=== PATIENT | female | born 1950 | race Caucasian/White ===

== ENCOUNTER 2017-01-30 11:14 | Emergency (ER) | payer OTHER ==
[~2017-01-30] VITALS: Ht 157.5 cm; Wt 60.0 kg
[~2017-01-30 11:14] MED LIST: AMO500 PO; MECL25TA2 PO; ONDA4TAB8 PO
[2017-01-30 11:17] VITALS: Ht 157.5 cm; Wt 60.0 kg
[2017-01-30] MEDS ORDERED: ONDANSETRON (ODT) 4 MG TAB ODT STA (11:50)
[2017-01-30] MEDS ORDERED: MECLIZINE 12.5 MG TAB PO ONE (12:00)
[2017-01-30 12:24] LABS: URINE BLOOD (Dip) POC Trace-lysed (NEGATIVE)
--- NOTE | 2017-01-30 12:27 | RADRPT ---
PROCEDURE: CT Brain without. CLINICAL INDICATION: Headache and dizziness. TECHNIQUE: A CT of the brain was performed on multidetector high-resolution CT scanner utilizing a xial sections from the skull base through the vertex without contrast. The scan was reviewed in sof t tissue brain and high frequency resolution bone algorithm windows. Images were reviewed on a high -resolution PACS workstation. One or more the following does reduction techniques were utilized: Aut omated exposure control, adjustment of the mA/ or kV according to patient's size, or use of iterativ e reconstruction technique. The exam CTDI = 45.01 mGy and the DLP = 630.2 mGy-cm. COMPARISON: Brain CT 05/16/2016. FINDINGS: The ventricles and sulci are age-appropriate. There is no intracranial hemorrhage, mass effect or m idline shift. No abnormal intra-axial or extra-axial fluid collections are seen. The woody/white mat ter differentiation is preserved. Partially empty sella is again noted. There are minimally scattered foci of hypoattenuation in the white matter, which are nonspecific in etiology but likely reflect chronic small vessel ischemic changes. There are minimal intracranial v ascular calcifications consistent with atherosclerosis. The visualized paranasal sinuses are essenti ally clear. IMPRESSION: 1. No acute intracranial hemorrhage, transcortical infarction or mass effect. 2. Minimal intracranial atherosclerosis and chronic small vessel ischemic changes. 3. Partially empty sella. RPTAT: HH .Vince Sandoval MD, MD Date Time Electronically viewed and signed by .Vince Sandoval MD, MD on 01/30/2017 12:26 .N/
[2017-01-30] MEDS ORDERED: MECL-77 PO (13:22)
[2017-01-30] MEDS ORDERED: IBUP400T22 PO (13:22)
--- NOTE | 2017-01-30 13:26 | ERD ---
ER Documentation Chief Complaint Date/Time DATE: 01/30/17 TIME: 13:24 Chief Complaint left arm numbness x 6 mos, no other neuro, no cp HPI 66-year-old female presents with multiple complaints. Point of a six-month history of some dizziness, and her head feeling heavy. She also some numbness in her left arm. She has a chest pain, shortness breath, bowel or bladder incontinence, weakness. She denies any history of trauma or fevers. She denies visual changes. ROS All systems reviewed and are negative except as per history of present illness. Medications Home Meds Active Scripts Ibuprofen* (Motrin*) 400 Mg Tab, 400 MG PO Q6H Y for PAIN, #15 TAB Prov:SHARON CONNORS MD 01/30/17 Meclizine Hcl* (Meclizine Hcl*) 25 Mg Tablet, 25 MG PO Q8H Y for DIZZINESS, #15 TAB Prov:SHARON CONNORS MD 01/30/17 Ondansetron Hcl* (Zofran*) 4 Mg Tablet, 4 MG PO Q8H Y for NAUSEA AND/OR VOMITING , #30 TAB Prov:JASWINDER BAILON 05/20/16 Meclizine Hcl* (Antivert*) 25 Mg Tablet, 25 MG PO Q6H Y for DIZZINESS, #20 TAB Prov:JASWINDER BAILON 05/20/16 Amoxicillin* (Amoxicillin*) 500 Mg Cap, 500 MG PO TID for 7 Days, CAP Prov:JASWINDER BAILON 05/20/16 Allergies Allergies: Coded Allergies: No Known Allergy (Unverified , 06/06/15) PMhx/Soc Medical and Surgical Hx: pt denies Medical Hx, pt denies Surgical Hx Hx Alcohol Use: No Hx Substance Use: No Hx Tobacco Use: No Physical Exam Vitals Vital Signs Date Time Temp Pulse Resp B/P Pulse Ox O2 Delivery O2 Flow Rate FiO2 01/30/17 11:17 98.1 78 18 135/77 99 Physical Exam Const: [] Alert, [id number]. Head: Atraumatic Eyes: Normal Conjunctiva. Eyes are PERRLA and extraocular movements intact. No pallor of the lids to suggest anemia ENT: Normal External Ears, Nose and Mouth. Neck: Full range of motion..~ No meningismus. Resp: Clear to auscultation bilaterally Cardio: Regular rate and rhythm, no murmurs Abd: Soft, non tender, non distended. Normal bowel sounds Skin: No petechiae or rashes Back: No midline or flank tenderness Ext: No cyanosis, or edema Neur: Awake and alert. Cranial nerves II through XII grossly intact. Negative Romberg and normal gait. Psych: Normal Mood and Affect Results 24 hrs Laboratory Tests Test 01/30/17 12:17 01/30/17 12:27 Bedside Glucose 100mg/dL Bedside Urine pH (LAB) 6.5 Bedside Urine Protein (LAB) Negative Bedside Urine Glucose (UA) Negative Bedside Urine Ketones (LAB) Negative Bedside Urine Blood Trace-lysed Bedside Urine Nitrite (LAB) Negative Bedside Urine Leukocyte Esterase (L Negative Current Medications Medications (Trade) Dose Ordered Sig/Aracelis Route PRN Reason Start Time Stop Time Status Last Admin Dose Admin Meclizine HCl (Antivert) 25 mg ONCE ONCE PO 01/30/17 12:00 01/30/17 12:04 DC 01/30/17 12:15 Ondansetron HCl (Zofran Odt) 8 mg ONCE STAT ODT 01/30/17 11:50 01/30/17 11:52 DC 01/30/17 12:15 Procedures/MDM Given the uncertain cause of headache and dizziness somatic complaints of CT brain was performed which showed no acute findings. EKG: Rate/Rhythm: [Normal Sinus Rhythm] QRS, ST, T-waves: [No changes consistent w/ acute ischemia] Impression: [No evidence of ischemia or arrhythmia] impression-sinus tachycardia without acute additional findings. Accu-Chek was 100. Urine shows no glucose, who presented nitrites. There is trace hemoglobin. Patient was given Antivert 25 mg by mouth. Patient presents with multiple somatic complaints of uncertain etiology. She presented with a pulse of 78 and mild sinus tachycardia on the EKG without additional cardiac symptoms suggestive of possible stress response. She is paresthesias, sensation of heaviness in her head with mild dizziness which is not reproducible. There is no signs of anemia on physical exam. Patient was discharged home with primary care follow-up in instructions to return to ER for new or worsening symptoms. The patient was stable with no new complaints during the ER course. Clinically, there is no current evidence to suggest meningitis, sepsis, acute abdomen, pneumonia, acute coronary syndrome, pulmonary embolism, or any other emergent condition appearing to require further evaluation or hospitalization. The patient should certainly return for any new or worsening symptoms per the aftercare instructions. They should otherwise follow-up with her primary care doctor for reevaluation this week. Departure Diagnosis: Primary Impression: Dizzy Additional Impression: Arm pain, left Patient Instructions: Dizziness, Unk Cause, Paraesthesias [facility] Usted se abel hecho un examen mdico de control que le indica que no est en [place] condicin que requiera tratamiento urgente en el Departamento de Emergencia. Un estudio ms profundo y el tratamiento de fontanez condicin pueden esperar sin ningn riesgo hasta que usted sea atendida/o en el consultorio de fontanez mdico o [place] cl augie. Es responsabilidad suya arreglar [place] jazmine para el seguimiento del rosey. MANEJO DE CONDICIONES NO URGENTES EN EL FUTURO 1) Si usted tiene un mdico de atencin primaria: Usted debera llamar a fontanez mdico de atencin primaria antes de venir al departamento de emergencia. Despus de las horas de consultorio, fontanez doctor o fontanez asociado/a est disponible por telfono. El mdico o enfermero de carol en el servicio telefnico puede asesorarle por reginald medio para atender el problema, o rosey contrario se puede programar [place] jazmine. 2) Si usted no tiene un mdico de atencin primaria: Llame al mdico o clnica de referencia que aparece abajo quinton las horas de consultorio para hacer [place] jazmine para que le vean. CLINICAS: [facility] [phone] [facility] [phone] [address] [facility] [phone] [place] [phone] [address] [facility] 801 [phone] [address] [facility] [phone] [address] Additional Instructions: Examines normal hoy. Cheque otro vez con fontanez doctor primario en el proximo verde or regresa para mas o nueva simptomas. SHARON CONNORS MD Jan 30, 2017 13:26
== END 2017-01-30 13:41 | disposition home or self-care (01) ==
LOC: FTE 11:14
DX: R42 Dizziness and giddiness (principal); M79.602 Pain in left arm
CPT/HCPCS: 70450; 81003; 82962; 93005; Z7502; Z7610